=== PATIENT | female | born 1995 | race Two or more races ===

== ENCOUNTER 2022-09-24 21:20 | Emergency (ER) | payer MEDICAID, OTHER ==
[~2022-09-24] VITALS: Ht 152.4 cm; Wt 63.5 kg
--- NOTE | 2022-09-24 21:30 | NUR ---
UNABLE TO PROVIDE URINE SAMPLE AT THIS TIME, URINE CUP PROVIDED
--- NOTE | 2022-09-24 21:35 | NUR ---
[id number] FROM HOME C/O R SIDE ABD PAIN AND N/V PAIN 7/10 X 1 WK. PATIENT IS AAOX4. ABLE TO MAKE NEEDS KNOWN. VITALS CHECKED.
--- NOTE | 2022-09-24 21:39 | NUR ---
SEEN BY DR VILLAREAL AT BEDSIDE
[2022-09-24] MEDS ORDERED: KETOROLAC TROMETHAMINE 15 MG/ML VIAL ONE (21:50)
[2022-09-24] MEDS ORDERED: ONDANSETRON HCL/PF 4 MG/2 ML VIAL ONE (21:50)
[2022-09-24] MEDS ORDERED: ONDANSETRON HCL/PF 4 MG/2 ML VIAL IVP ONE (22:00)
[2022-09-24] MEDS ORDERED: KETOROLAC TROMETHAMINE INJ 30 MG/ML VIAL IV ONE (22:00)
[2022-09-24] MEDS ORDERED: IV NS 0.9% 1,000 ML BAG IV ONE (22:00)
--- NOTE | 2022-09-24 22:02 | NUR ---
IV CANNULA G20 INSERTED. BLOOD DRAWN AND SENT TO LAB
[2022-09-24 22:43] LABS: EOSINOPHILS % (AUTO) 0.1 % (0.0-6.0); HEMATOCRIT 36 % (33-45); LYMPHOCYTES # (AUTO) 1.9 K/uL (0.8-4.8); LYMPHOCYTES % (AUTO) 11.5 % (20.0-44.0); MEAN CORPUSCULAR HGB CONC 33 g/dl (31.0-36.0); MEAN CORPUSCULAR VOLUME 83 fL (82-100); MONOCYTES # (AUTO) 1.5 K/uL (0.1-1.30); MONOCYTES % (AUTO) 9.3 % (2.0-12.0); NEUTROPHILS # (AUTO) 12.7 K/uL (1.8-8.9); NEUTROPHILS % (AUTO) 79.1 % (43.0-81.0); PLATELET COUNT (AUTO) 427 K/uL (150-450); RED BLOOD CELL COUNT(AUTO) 4.35 MIL/uL (4.0-5.2)
[2022-09-24 23:02] LABS: CALCIUM, SERUM 8.1 mg/dL (8.5-10.1); POTASSIUM 3.8 mmol/L (3.5-5.1)
[2022-09-24 23:10] LABS: ALBUMIN 3.1 g/dL (3.4-5.0); BILIRUBIN,DIRECT 0.1 mg/dL (0.0-0.2); BILIRUBIN,TOTAL 0.5 mg/dL (0.2-1.0)
--- NOTE | 2022-09-25 00:37 | NUR ---
2ND URINE SAMPLE SENT TO LAB.
[2022-09-25 01:08] LABS: BILIRUBIN,URINE NEGATIVE (NEGATIVE); COLOR,URINE YELLOW (YELLOW); LEUKOCYTE ESTERASE ,URINE 2+ (NEGATIVE); NITRITE, URINE POSITIVE (NEGATIVE); PROTEIN,URINE NEGATIVE (NEGATIVE); UGLUCOSE NEGATIVE (NEGATIVE); UROBILINOGEN,URINE 0.2 EU/dL (0.2)
[2022-09-25 01:14] LABS: BACTERIA,URINE Many /HPF (None Seen); SQUAMOUS EPITHELIAL CELL,UR Few /HPF (None Seen)
[2022-09-25] MEDS ORDERED: CEPH500C2 PO (02:02)
--- NOTE | 2022-09-25 03:13 | NUR ---
Patient discharged to home in stable condition. Written and verbal after care instructions given. Patient verbalizes understanding of instruction.
--- NOTE | 2022-09-25 03:13 | NUR ---
IV CANNULA REMOVED
[2022-09-25 03:14] VITALS: BP 108/63
== END 2022-09-25 03:14 | disposition home or self-care (01) ==
LOC: ER 21:21
DX: R10.9 Unspecified abdominal pain (principal); R11.0 Nausea
CPT/HCPCS: 99284; 74176; 96374; 96375; 85025; 80048; 83690; 80076; 36415; 84702; 84703; 81001; J2405; J7030; J1885; 87086-TC

== ENCOUNTER 2024-11-16 05:20 | Emergency (ER) | payer MEDICAID, OTHER ==
[~2024-11-16] VITALS: Ht 152.4 cm; Wt 65.8 kg
[~2024-11-16 05:20] MED LIST: CEPH500C2 PO
[2024-11-16] MEDS ORDERED: MORPHINE SULFATE INJ 2 MG/ML DISP.SYRIN IV ONE (06:30)
[2024-11-16] MEDS: IV NS 0.9% 1,000 ML BAG IV ONE (06:30)
[2024-11-16] MEDS ORDERED: MORPHINE SULFATE INJ 4 MG/ML DISP.SYRIN ONE (06:31)
[2024-11-16] MEDS: KETOROLAC TROMETHAMINE INJ 30 MG/ML VIAL IV ONE (07:00)
[2024-11-16] MEDS ORDERED: IV NS 0.9% 250 ML IV ONE (07:01)
[2024-11-16] MEDS ORDERED: IOHEXOL-300 100 ML VIAL IV ONE (07:01)
[2024-11-16] MEDS ORDERED: CT SWABBABLE VALVE TRANS SET 1 EA INFUS.SET MC ONE (07:01)
[2024-11-16] MEDS ORDERED: KETOROLAC TROMETHAMINE INJ 30 MG/ML VIAL ONE (07:06)
[2024-11-16 07:07] LABS: BASOPHILS % (AUTO) 0.1 % (0.0-2.0); EOSINOPHILS % (AUTO) 0.2 % (0.0-6.0); HEMATOCRIT 33 % (33-45); HEMOGLOBIN 11.2 g/dL (11.5-14.8); LYMPHOCYTES # (AUTO) 1.4 K/uL (0.8-4.8); LYMPHOCYTES % (AUTO) 8.3 % (20.0-44.0); MEAN CORPUSCULAR HEMOGLOBIN 28 PG (26.0-33.0); MEAN CORPUSCULAR HGB CONC 34 g/dl (31.0-36.0); MEAN CORPUSCULAR VOLUME 82 fL (82-100); MONOCYTES # (AUTO) 1.4 K/uL (0.1-1.30); MONOCYTES % (AUTO) 8.3 % (2.0-12.0); NEUTROPHILS # (AUTO) 13.8 K/uL (1.8-8.9); NEUTROPHILS % (AUTO) 83.1 % (43.0-81.0); PLATELET COUNT (AUTO) 428 K/uL (150-450); RED BLOOD CELL COUNT(AUTO) 4.06 MIL/uL (4.0-5.2); RED CELL DISTRIBUTION WIDTH 14.1 % (11.5-15.0); WHITE BLOOD COUNT (AUTO) 16.6 K/uL (4.3-11.0)
[2024-11-16 07:23] LABS: ALBUMIN 2.9 g/dL (3.4-5.0); BILIRUBIN,DIRECT 0.1 mg/dL (0.0-0.2); BILIRUBIN,TOTAL 0.2 mg/dL (0.2-1.0); POTASSIUM 4.1 mmol/L (3.5-5.1); TOTAL PROTEIN, SERUM 7.8 g/dL (6.4-8.2)
[2024-11-16] MEDS ORDERED: LIDOCAINE 0.5% HCL 50 ML VIAL ONE (09:47)
[2024-11-16] MEDS: LIDOCAINE 1% INJ 50 ML MDV IJ ONE (10:30)
[2024-11-16 11:06] LABS: PREGNANCY TEST URINE QUAL POSITIVE (NEGATIVE)
[2024-11-16] MEDS ORDERED: AMOX-430 PO (11:11)
[2024-11-16 11:19] VITALS: BP 124/66; TEMP 98.5; O2SAT 99
== END 2024-11-16 11:21 | disposition home or self-care (01) ==
LOC: ER 05:33
DX: O26.899 Other specified pregnancy related conditions, unspecified trimester (principal); N75.0 Cyst of Bartholin's gland; R10.2 Pelvic and perineal pain; Z88.5 Allergy status to narcotic agent; Z3A.00 Weeks of gestation of pregnancy not specified
CPT/HCPCS: 99285; 74177; 96374; 56420; 96361; 85025; 80048; 80076; 84703; 36415; 84702; J1885; J3490; J7030; J7050; Q9967; J2270